=== PATIENT | male | born 1955 | race Hispanic/Latino ===

== ENCOUNTER 2017-11-05 11:17 | Inpatient (IN) | payer MEDICARE, OTHER ==
[2017-11-05 11:36] VITALS: BMI 24.1
[2017-11-05] MEDS ORDERED: Magnesium Sulfate 1 gm in D5W 1 GM/100 ML BAG IVPB ONE (11:44)
[2017-11-05] MEDS ORDERED: Sodium Chloride 0.9% 1,000 ML IV SCH (11:45)
--- NOTE | 2017-11-05 11:51 | ED PDOC ---
Arrival/HPI - General Chief Complaint: Shortness Of Breath Time Seen by Provider: 11/05/17 11:34 Historian: Patient - History of Present Illness Narrative History of Present Illness (Text): 11/05/17 11:47 Anand Leyva is a 61 year old male who presents to the emergency department complaining of 3-4 day duration of exertional shortness of breath. Patient has also noted increased coughing, but there has been no gross change compared to his baseline cough. He states that if he walks more than one block, he becomes more short of breath and has to stop any movement to regain his breathing. The patient notes that he smokes 1 pack/day. The patient denies fevers, chills, headache, dizziness, chest pain, abdominal pain, nausea, vomiting, diarrhea, back pain, neck pain, urinary/bowel changes, or any other complaint. pt denied LOC pt arrived to the Emergency department for further eval pt's without other complaints. PCP: none pt lives along pt smokes at least 1 ppd Time/Duration: Other (3-4 Days) Symptom Onset: Sudden Symptom Course: Unchanged Activities at Onset: Rest, Light Context: Walking, Exertion Past Medical History - Provider Review Nursing Documentation Reviewed: Yes - Travel History Have you recently traveled outside [place] w/in the past 3 mons?: No - Past History Past History: No Previous - Infectious Disease Hx of Infectious Diseases: None - Cardiac Hx Cardiac Disorders: Yes Hx Hypertension: Yes - Pulmonary Hx Respiratory Disorders: No - Psychiatric Hx Substance Use: No Family/Social History - Physician Review Nursing Documentation Reviewed: Yes Family/Social History: No Known Family HX Smoking Status: Heavy Smoker > 10 Cigarettes Daily Hx Alcohol Use: Yes Frequency of alcohol use: Daily Hx Substance Use: No Hx Substance Use Treatment: No Allergies/Home Meds Allergies/Adverse Reactions: Allergies No Known Allergies Allergy (Verified 11/05/17 11:40) Home Medications: Home Meds Medication Instructions Recorded Confirmed Simvastatin 20 mg PO DAILY 05/20/13 11/05/17 Lisinopril [Zestril] 40 mg PO DAILY 11/05/17 11/05/17 amLODIPine [Norvasc] 10 mg PO DAILY 11/05/17 11/05/17 Review of Systems - Physician Review All systems were reviewed & negative as marked: Yes - Review of Systems Constitutional: absent: Fevers, Night Sweats Eyes: Normal ENT: Normal Respiratory: SOB, Cough Cardiovascular: absent: Chest Pain Gastrointestinal: absent: Abdominal Pain, Stool Changes, Diarrhea, Nausea, Vomiting Genitourinary Male: absent: Urinary Output Changes Musculoskeletal: absent: Back Pain, Neck Pain Skin: Normal Neurological: absent: Headache, Dizziness Endocrine: Normal Hemo/Lymphatic: Normal Psychiatric: Normal Physical Exam - Physical Exam Narrative Physical Exam (Text): 11/05/17 11:52 General: alert/awake, GCS = 15, oriented x 3, resting in bed, uncomfortable, cooperative, interactive; NAD Head: NC/AT EYE: PERRLA, EOMI, sclera anicteric, no nystagmus, no photophobia Facial: WNL Oral: uvula/tongue are midline, no exudate/lesions, no drooling/stridor, no dysphonia; intact dentitions NECK: intact ROM, no midline tenderness, no nuchal rigidity, no meningeal signs ; no step off Chest: Diffuse wheezing bilaterally; left worse than right; No rales. No rhonchi. Mild tachypnea. No accessory muscle use noted. Cardiac: +S1, +S2, no m/r/r, no tachycardia Abdominal: +BS, soft/nd/nt, well nourished patient; no masses/rebound/guarding/ rigidity; no bill's sign, no mcburney's point tenderness Extremities: intact ROM, strength 5/5 grossly intact in all limbs, neurovasc intact b/l; + ambulatory; reflex +2/2 BACK: no step off, no midline tenderness, NO crepitus, no gross deformities noted; Intact ROM SKIN: cap refill < 1 sec, no ulcerations, no petechiae, no rashes NEURO: CNII-XII WNL, no facial asymmetries, no slurr speech, oriented x 3 NIH stroke scale ~ 0 Psych: normal insight, normal affect; follows command with ease Vital Signs Reviewed: Yes Vital Signs Temp Pulse Resp BP Pulse Ox 11/05/17 14:49 95 H 18 99 11/05/17 14:21 98.0 F 91 H 18 136/84 95 11/05/17 11:34 20 97 11/05/17 11:28 98.4 F 99 H 18 162/96 H 96 Temperature: Afebrile Blood Pressure: Hypertensive Pulse: Tachycardic Respiratory Rate: Normal Appearance: Positive for: Well-Appearing, Non-Toxic, Uncomfortable, Other (alert /awake, GCS = 15, oriented x 3, resting in bed, n) Pain Distress: None Mental Status: Positive for: Alert and Oriented X 3 - Systems Exam Head: Present: Atraumatic, Normocephalic Medical Decision Making ED Course and Treatment: 11/05/17 11:53 Impression: A 61 year old male presents to the emergency department for further evaluation of 3-4 day duration exertional shortness of breath. Plan: -- EKG -- Chest X-ray -- Aspirin, Duoneb, Magnesium Sulfate, SOLU-Medrol, IV Fluids -- Labs -- Urinalysis -- Reassess and disposition Progress Notes: 1320 after 3 treatments, pt felt some improvement pt continues to have mild sob Lung re-exam: + basiliar wheezing noted, no rales/rhonchi, no accessory muscle use noted, faint tachypenia is noted after discussion with the patient, and pt made aware of his medical results, pt is recommended for admission and further monitor of his breathing; pt after much thought agrees; pt agrees with admission 11/05/17 13:46 Dr Beltran [facility] [employer] medical staff, made aware, agrees with admission, will admit patient pt is made aware of his medical results agrees with admission Re-evaluation Time: 13:15 Reassessment Condition: Improving,but remains with symptoms - Critical Care Critical Care Minutes: 30 minutes Critical Care Time: Excluding Proc Time - Lab Interpretations Lab Results: 11/05/17 12:15 11/05/17 12:15 Lab Results 11/05/17 12:15: Sodium 140, Potassium 5.0, Chloride 102, Carbon Dioxide 24, Anion Gap 19, BUN 23 H, Creatinine 1.1, Est GFR ( Amer) > 60, Est GFR ( Non-Af Amer) > 60, Random Glucose 96, Calcium 9.1, Total Bilirubin 0.4, AST 24, ALT 36, Alkaline Phosphatase 103, Troponin I < 0.01, NT-Pro-B Natriuret Pep 243 , Total Protein 8.1, Albumin 4.3, Globulin 3.9, Albumin/Globulin Ratio 1.1, Lipase 108 11/05/17 12:15: WBC 6.8, RBC 4.82, Hgb 14.9, Hct 43.9, MCV 91.1, MCH 30.9, MCHC 33.9, RDW 13.6, Plt Count 274, MPV 9.0, Gran % 70.3 H, Lymph % (Auto) 16.0 L, Rankin % (Auto) 12.1 H, Eos % (Auto) 1.2 L, Baso % (Auto) 0.4, Gran # 4.74, Lymph # (Auto) 1.1 L, Rankin # (Auto) 0.8 H, Eos # (Auto) 0.1, Baso # (Auto) 0.03 I have reviewed the lab results: Yes Interpretation: All labs normal - RAD Interpretation Narrative RAD Interpretations (Text): 11/05/17 13:36 HISTORY: sob/coughing COMPARISON: No prior. TECHNIQUE: Chest PA and lateral FINDINGS: LUNGS: No active pulmonary disease. PLEURA: No significant pleural effusion identified. No pneumothorax apparent. CARDIOVASCULAR: Normal. OSSEOUS STRUCTURES: No significant abnormalities. VISUALIZED UPPER ABDOMEN: Normal. OTHER FINDINGS: None. IMPRESSION: No active disease. Radiology Orders: 11/05/17 11:43 CHEST TWO VIEWS (PA/LAT) [RAD] Stat Upstairs Maid: Radiologist - EKG Interpretation EKG Interpretation (Text): 11/05/17 16:19 Sinus tach at 110 bpm, normal axis, no ectopy, poor baseline, diffuse low voltage inf leads, qs in leads V1-2, no st changes, ABNL EKG; no gross changes compare with old ekg 04/2013 Interpreted by ED Physician: Yes Type: 12 lead EKG Comparison: Similar to previous EKG - Medication Orders Current Medication Orders: Acetaminophen (Tylenol 325mg Tab) 650 mg PO Q6H PRN PRN Reason: Fever >100.4 F Albuterol/Ipratropium (Duoneb 3 Mg/0.5 Mg (3 Ml) Ud) 3 ml IH Q2H PRN PRN Reason: Shortness of Breath Albuterol/Ipratropium (Duoneb 3 Mg/0.5 Mg (3 Ml) Ud) 3 ml IH [id number] IMANI Sodium Chloride (Sodium Chloride 0.9%) 1,000 mls @ 100 mls/hr IV .Q10H IMANI Last Admin: 11/05/17 12:10 Dose: 100 mls/hr eMAR Start Stop Document 11/05/17 12:10 [email or web address] (Rec: 11/05/17 12:11 [email or web address] [id number]) Intravenous Solution Start Date 11/05/17 Start Time 12:11 End Date 11/05/17 Methylprednisolone (Solu-Medrol) 40 mg IV Q6 IMANI Ondansetron HCl (Zofran Inj) 4 mg IVP Q6H PRN PRN Reason: Nausea/Vomiting Pantoprazole Sodium (Protonix Ec Tab) 40 mg PO 0630 IMANI Discontinued Medications Albuterol/Ipratropium (Duoneb 3 Mg/0.5 Mg (3 Ml) Ud) 3 ml IH Q15M IMANI Stop: 11/05/17 12:16 Last Admin: 11/05/17 12:45 Dose: 3 ml Aspirin (Aspirin) 325 mg PO STAT STA Stop: 11/05/17 11:46 Last Admin: 11/05/17 11:59 Dose: 325 mg Magnesium Sulfate/Dextrose (Magnesium Sulfate 1 Gm/100 Ml D5w) 1 gm in 100 mls @ 100 mls/hr IVPB ONCE ONE Stop: 11/05/17 12:43 Last Admin: 11/05/17 12:10 Dose: 100 mls/hr eMAR Start Stop Document 11/05/17 12:10 [email or web address] (Rec: 11/05/17 12:10 [email or web address] [id number]) Intravenous Solution Start Date 11/05/17 Start Time 12:10 Methylprednisolone (Solu-Medrol) 125 mg IVP STAT STA Stop: 11/05/17 11:43 Last Admin: 11/05/17 12:10 Dose: 125 mg IVP Administration Document 11/05/17 12:10 [email or web address] (Rec: 11/05/17 12:10 [email or web address] [id number]) Charges for Administration # of IVP Administrations 1 - Scribe Statement The provider has reviewed the documentation as recorded by the Scribe Blank Hung Provider Scribe Attestation: All medical record entries made by the Scribe were at my direction and personally dictated by me. I have reviewed the chart and agree that the record accurately reflects my personal performance of the history, physical exam, medical decision making, and the department course for this patient. I have also personally directed, reviewed, and agree with the discharge instructions and disposition. Disposition/Present on Arrival - Present on Arrival Any Indicators Present on Arrival: No History of DVT/PE: No History of Uncontrolled Diabetes: No Urinary Catheter: No History of Decub. Ulcer: No History Surgical Site Infection Following: None - Disposition Have Diagnosis and Disposition been Completed?: Yes Diagnosis: COPD exacerbation, Wheezing, Shortness of breath, Elevated blood pressure reading Disposition: HOSPITALIZED Disposition Time: 13:30 Patient Plan: Admission, Observation Condition: STABLE
[2017-11-05] MEDS: Albuterol-Ipratrop 3 mg / 0.5 (3 ml) UD IH SCH ×4 (12:10→20:09)
[2017-11-05 12:51] LABS: BASO % 0.4 % (0.0-3.0); EOS # 0.1 (0.0-0.7); EOS % 1.2 % (1.5-5.0); GRAN # 4.74 (1.4-6.5); GRAN % 70.3 % (50.0-68.0); HEMOGLOBIN 14.9 g/dL (14.0-18.0); LYMPH # 1.1 (1.2-3.4); MEAN CELL VOLUME 91.1 fl (80.0-105.0); MEAN CORPUSCULAR HEMOGLOBIN 30.9 pg (25.0-35.0); MEAN CORPUSCULAR HGB CONC 33.9 g/dl (31.0-37.0); MONO # 0.8 (0.1-0.6); MONO % 12.1 % (1.0-6.0); RBC 4.82 10^6/uL (3.5-6.1); RED CELL DISTRIBUTION WIDTH 13.6 % (11.5-14.5); WHITE BLOOD COUNT 6.8 10^3/ul (4.5-11.0)
[2017-11-05 12:52] LABS: BASO # 0.03 K/mm3 (0.0-2.0)
[2017-11-05 12:58] LABS: B-TYPE NATRIURETIC PEPTIDE 243 pg/mL (0-450); TROPONIN I < 0.01 ng/mL
--- NOTE | 2017-11-05 13:30 | RAD ---
HISTORY: sob/coughing COMPARISON: No prior. TECHNIQUE: Chest PA and lateral FINDINGS: LUNGS: No active pulmonary disease. PLEURA: No significant pleural effusion identified. No pneumothorax apparent. CARDIOVASCULAR: Normal. OSSEOUS STRUCTURES: No significant abnormalities. VISUALIZED UPPER ABDOMEN: Normal. OTHER FINDINGS: None. IMPRESSION: No active disease.
[2017-11-05] MEDS ORDERED: Albuterol-Ipratrop 3 mg / 0.5 (3 ml) UD IH PRN (15:38)
[2017-11-05 16:28] LABS: ALB/GLOB RATIO 1.1 (1.1-1.8); ALBUMIN 4.3 g/dL (3.0-4.8); ALT/SGPT 36 U/L (7-56); AST/SGOT 24 U/L (17-59); BLOOD UREA NITROGEN 23 mg/dL (7-21); CALCIUM 9.1 mg/dL (8.4-10.5); GFR AFRICAN-AMERICAN > 60; GFR NON-AFRICAN AMERICAN > 60; LIPASE 108 U/L (23-300)
[2017-11-05] MEDS ORDERED: MethylPREDNISolone 40 mg Vial IV SCH ×2 (18:00→19:15)
--- NOTE | 2017-11-05 18:34 | CARD ---
APPROVED REPORT EKG Measurement Heart [id number] HI [id number] <Conclusion> Sinus tachycardia Septal infarct, age undetermined Abnormal ECG
--- NOTE | 2017-11-05 20:29 | HP ---
HISTORY OF PRESENT ILLNESS: The patient is 61 years old, came to emergency room because of increasing shortness of breath, cough, congestion, wheezing. The patient states that he has been having symptoms of cough and congestion for the last few days, got worse today. Complained of shortness of breath on walking 1-2 blocks. No history of fever or chill. Complained of feeling weak. No abdominal pain. No nausea, vomiting. No diarrhea. PAST MEDICAL HISTORY: Significant for, 1. Hypertension. 2. Hyperlipidemia. ALLERGY: HE IS NOT ALLERGIC TO ANY MEDICATIONS. MEDICATIONS AT HOME: He is on amlodipine 10 mg daily, simvastatin 20 mg daily, lisinopril 40 mg daily. SOCIAL HISTORY: He is a heavy smoker, socially drinks. PHYSICAL EXAMINATION: GENERAL: He is awake, alert, oriented, communicative. VITAL SIGNS: He is afebrile, pulse 97, respirations 20, blood pressure 138/79. LUNGS: Bilateral expiratory rhonchi. HEART: S1 and S2 audible. ABDOMEN: Soft. Nontender. No rebound. No guarding. NEUROLOGICAL: The patient is awake, alert, oriented, communicative. LABORATORY EXAM: WBC 6.8, hemoglobin 14, hematocrit 43, platelet 274. Chemistry: Sodium 140, potassium 5, chloride 102, CO2 of 24, BUN 23, creatinine 1.1, blood sugar 96. X-ray chest is unremarkable. EKG shows sinus tachycardia and septal infarct. ASSESSMENT: 1. Chronic obstructive pulmonary disease exacerbation. 2. Muscle spasm. 3. Hypertension. 4. Hyperlipidemia. 5. Active smoker. PLAN: We will start the patient on IV steroid, nebulizer treatment and cover him for bronchitis. Edmund Beltran MD
[2017-11-05] MEDS ORDERED: Pneumococcal 23-Valent Vaccine IM ONE (20:45)
[2017-11-06] MEDS: Albuterol-Ipratrop 3 mg / 0.5 (3 ml) UD IH SCH ×4 (01:47→21:25)
[2017-11-06] MEDS: Pantoprazole 40 mg EC Tab PO SCH (07:01)
[2017-11-06 08:03] VITALS: O2SAT 95
[2017-11-06] MEDS: MethylPREDNISolone 40 mg Vial IV SCH ×2 (13:54→21:48)
[2017-11-07] MEDS: Albuterol-Ipratrop 3 mg / 0.5 (3 ml) UD IH SCH ×3 (01:54→13:33)
[2017-11-07] MEDS: Pantoprazole 40 mg EC Tab PO SCH (05:32)
[2017-11-07] MEDS: MethylPREDNISolone 40 mg Vial IV SCH ×2 (05:33→14:44)
[2017-11-07 07:47] VITALS: BP 121/74; RESP 20; TEMP 97.4
--- NOTE | 2017-11-07 10:09 | PN ---
DATE: 11/06/2017 HISTORY OF PRESENT ILLNESS: The patient is 61 years old, seen and examined, came in with cough, congestion, shortness of breath, feels very anxious, restless, states his dog is home alone. He want to leave today. He is feeling much better. PHYSICAL EXAMINATION: VITAL SIGNS: He is afebrile, pulse 85, respirations 20, blood pressure 129/74. LUNGS: Bilateral few expiratory rhonchi. HEART: S1, S2 audible. Breath sounds are diffusely decreased. ABDOMEN: Soft, obese, nontender. No rebound. No guarding. NEUROLOGIC: The patient is awake, alert, oriented, communicative. ASSESSMENT AND PLAN: 1. Chronic obstructive pulmonary disease exacerbation. 2. Active heavy smoker for long time. 3. History of peripheral vascular disease secondary to smoking. 4. Hypertension. 5. Hyperlipidemia. 6. History of alcohol dependence. The patient is having tremors and seems to be restless. I will start him on Librium and I advised the patient to stay for another 24 to 48 hours and we will reevaluate in the morning and make discharge Edmund Beltran MD
[2017-11-07 11:29] VITALS: PULSE 109
--- NOTE | 2017-11-08 09:12 | DS ---
HISTORY OF PRESENT ILLNESS: The patient is a 61-year-old, seen and examined, was admitted because of increasing cough, congestion, shortness of breath, seems anxious to go home. He states his dog is home alone. PHYSICAL EXAMINATION: VITAL SIGNS: He is afebrile, pulse 82, respiration 20, blood pressure 121/74. LUNGS: Bilateral few expiratory rhonchi. HEART: S1 and S2 audible. ABDOMEN: Soft, nontender. No rebound, no guarding. NEUROLOGIC: He is awake, alert, oriented, communicative. LABORATORY DATA: There are no new labs available today. ASSESSMENT: 1. Chronic obstructive pulmonary disease exacerbation. 2. Bronchospasm. 3. Hypertension. 4. Hyperlipidemia. PLAN: The patient is going to be discharged home today. We will discharge him on Levaquin 500 daily, Medrol Dosepak and antitussives. Followup in the office . Edmund Beltran MD
== END 2017-11-07 17:06 | disposition home or self-care (01) | DRG 192 ==
LOC: ED 11:17 → ERH 13:51 → 3RNO 15:26 → OBSVTOIN 11-06 14:13
PROVIDERS: ADMIT Internal Medicine; ATTEND Internal Medicine
DX: J44.1 Chronic obstructive pulmonary disease with (acute) exacerbation (principal); I10 Essential (primary) hypertension; E78.5 Hyperlipidemia, unspecified; I73.9 Peripheral vascular disease, unspecified; F17.210 Nicotine dependence, cigarettes, uncomplicated; J98.01 Acute bronchospasm; Z79.899 Other long term (current) drug therapy; F10.21 Alcohol dependence, in remission